=== PATIENT | female | born 2005 | race Caucasian/White ===

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

== ENCOUNTER 2023-12-13 19:13 | Emergency (ER) | payer OTHER ==
[2023-12-13 19:19] VITALS: BP 111/62; PULSE 108; RESP 18; TEMP 97.3; BMI 20.7
== END 2023-12-13 21:21 | disposition home or self-care (01) ==
LOC: JERFT 19:13
PROC: 0U9L00Z Drainage of Vestibular Gland with Drainage Device, Open Approach (ICD-10-PCS; principal; 2023-12-13)
DX: N75.0 Cyst of Bartholin's gland (principal)
CPT/HCPCS: 99283-25

== ENCOUNTER 2023-12-14 13:59 | Emergency (ER) | payer OTHER ==
[2023-12-14 14:07] VITALS: BP 109/57; PULSE 98; RESP 16; TEMP 97.6; BMI 20.7
[2023-12-14] MEDS ORDERED: KETOROLAC TROMETHAMINE 30 MG/1 ML VIAL ONE (14:40)
[2023-12-14] MEDS ORDERED: ACETAMINOPHEN 500 MG TABLET (FP) ONE (14:41)
[2023-12-14] MEDS: KETOROLAC TROMETHAMINE 30 MG/1 ML VIAL IM ONE (14:44)
[2023-12-14] MEDS: ACETAMINOPHEN 500 MG TABLET (FP) PO ONE (14:44)
== END 2023-12-14 15:07 | disposition home or self-care (01) ==
LOC: JERFT 13:59
PROC: 3E0233Z Introduction of Anti-inflammatory into Muscle, Percutaneous Approach (ICD-10-PCS; principal; 2023-12-14)
DX: N75.0 Cyst of Bartholin's gland (principal); R10.2 Pelvic and perineal pain
CPT/HCPCS: 84703; 99284-25

== ENCOUNTER 2023-12-16 11:25 | Emergency (ER) | payer OTHER ==
[2023-12-16 11:39] VITALS: BP 111/58; PULSE 89; RESP 18; TEMP 985; BMI 21.4
== END 2023-12-16 13:26 | disposition home or self-care (01) ==
LOC: JERFT 11:25 → JER 11:25
DX: N75.1 Abscess of Bartholin's gland (principal)
CPT/HCPCS: 99282-25

== ENCOUNTER 2024-06-30 17:21 | Emergency (ER) | payer OTHER ==
[2024-06-30 17:27] VITALS: BP 102/67; PULSE 97; RESP 20; TEMP 98.7; BMI 20.6
[2024-06-30] MEDS ORDERED: LIDOCAINE HCL 1%, 10 MG/ML (20ML VIAL) ONE (22:04)
[2024-06-30] MEDS: LIDOCAINE 1%/EPI 1:100000 (20 ML MULTI DOSE VIAL) INF ONE (22:05)
== END 2024-06-30 23:04 | disposition home or self-care (01) ==
LOC: JERFT 17:21
DX: N75.0 Cyst of Bartholin's gland (principal)
CPT/HCPCS: 99283-25

== ENCOUNTER 2024-07-03 21:17 | Emergency (ER) | payer OTHER ==
[2024-07-03 21:24] VITALS: BP 106/67; PULSE 95; RESP 18; TEMP 98.6; BMI 20.6
[2024-07-03] MEDS ORDERED: LIDOCAINE 2.5%/PRILOCAINE 2.5% (5 Gram/TUBE) TP ONE (21:48)
[2024-07-03] MEDS: LIDOCAINE 2.5%/PRILOCAINE 2.5% 30 GRAM TUBE TP ONE (21:49)
== END 2024-07-03 23:04 | disposition home or self-care (01) ==
LOC: JER 21:17 → JERFT 21:17
PROC: 0U9LX0Z Drainage of Vestibular Gland with Drainage Device, External Approach (ICD-10-PCS; principal; 2024-07-03)
DX: N75.0 Cyst of Bartholin's gland (principal)
CPT/HCPCS: 99283-25

== ENCOUNTER 2024-07-05 20:38 | Emergency (ER) | payer OTHER ==
[2024-07-05 20:51] VITALS: BP 109/68; PULSE 100; RESP 16; TEMP 98.3; BMI 20.7
[2024-07-05] MEDS ORDERED: IBUPROFEN 600 MG TABLET (FP) PO ONE (21:49)
[2024-07-05] MEDS: IBUPROFEN 600 MG TABLET (FP) PO ONE (21:54)
== END 2024-07-05 22:03 | disposition home or self-care (01) ==
LOC: JER 20:38 → JERFT 20:38
PROC: 0U9LX0Z Drainage of Vestibular Gland with Drainage Device, External Approach (ICD-10-PCS; principal; 2024-07-05)
DX: N75.1 Abscess of Bartholin's gland (principal); R10.2 Pelvic and perineal pain
CPT/HCPCS: 99283-25

== ENCOUNTER 2024-07-06 18:11 | Emergency (ER) | payer OTHER ==
[2024-07-06 18:47] VITALS: RESP 18; BMI 20.6
[2024-07-06] MEDS ORDERED: oxyCODONE HCL 5 MG TABLET ONE (20:33)
[2024-07-06] MEDS ORDERED: LIDOCAINE HCL 2% (20ML MULTI-DOSE VIAL) ONE (20:34)
[2024-07-06] MEDS ORDERED: ACETAMINOPHEN 500 MG TABLET (FP) ONE (20:34)
[2024-07-06] MEDS: ACETAMINOPHEN 500 MG TABLET (FP) PO ONE (20:40)
[2024-07-06] MEDS: oxyCODONE HCL 5 MG TABLET PO ONE (20:40)
[2024-07-06] MEDS: LIDOCAINE HCL 2% (50ML VIAL) SQ ONE (20:41)
[2024-07-06 22:52] VITALS: BP 122/70; PULSE 87; TEMP 98.9
== END 2024-07-06 22:55 | disposition home or self-care (01) ==
LOC: JER 18:11
DX: N75.0 Cyst of Bartholin's gland (principal)
CPT/HCPCS: 99283-25

== ENCOUNTER 2024-07-08 10:05 | Emergency (ER) | payer OTHER ==
[2024-07-08 10:33] VITALS: BP 97/62; PULSE 104; RESP 16; TEMP 97.5; BMI 20.6
== END 2024-07-08 14:04 | disposition home or self-care (01) ==
LOC: JER 10:05
DX: N75.0 Cyst of Bartholin's gland (principal); Z48.817 Encounter for surgical aftercare following surgery on the skin and subcutaneous tissue
CPT/HCPCS: 99283-25

== ENCOUNTER 2024-08-14 10:30 | Emergency (ER) | payer OTHER ==
[2024-08-14 10:46] VITALS: BP 108/71; PULSE 93; RESP 16; TEMP 98.3; BMI 21.6
[2024-08-14] MEDS ORDERED: LIDOCAINE 2.5%/PRILOCAINE 2.5% (5 Gram/TUBE) TP ONE (11:52)
[2024-08-14] MEDS: LIDOCAINE 2.5%/PRILOCAINE 2.5% (5 Gram/TUBE) TP ONE (11:54)
[2024-08-14] MEDS: ACETAMINOPHEN 500 MG TABLET (FP) PO ONE (11:55)
[2024-08-14] MEDS ORDERED: ACETAMINOPHEN 500 MG TABLET (FP) ONE (11:55)
== END 2024-08-14 14:30 | disposition home or self-care (01) ==
LOC: JERFT 10:30
PROC: 0U9MX0Z Drainage of Vulva with Drainage Device, External Approach (ICD-10-PCS; principal; 2024-08-14)
DX: N75.0 Cyst of Bartholin's gland (principal)
CPT/HCPCS: 82962; 99283-25

== ENCOUNTER 2024-12-05 21:41 | Emergency (ER) | payer OTHER ==
[2024-12-05 21:47] VITALS: BP 123/73; PULSE 75; RESP 16; TEMP 98.8; BMI 21.6
== END 2024-12-06 00:40 | disposition home or self-care (01) ==
LOC: JER 21:41
PROC: 0U9MXZZ Drainage of Vulva, External Approach (ICD-10-PCS; principal; 2024-12-05)
DX: N75.1 Abscess of Bartholin's gland (principal)
CPT/HCPCS: 84703; 99283-25

== ENCOUNTER 2025-03-30 22:52 | Emergency (ER) | payer OTHER ==
[2025-03-30 22:59] VITALS: BP 116/64; PULSE 113; RESP 16; TEMP 98.6; BMI 21.6
== END 2025-03-31 00:01 | disposition home or self-care (01) ==
LOC: JER 22:52
PROC: 0U9MXZZ Drainage of Vulva, External Approach (ICD-10-PCS; principal; 2025-03-30)
DX: N75.0 Cyst of Bartholin's gland (principal)
CPT/HCPCS: 10060; 99283-25